=== PATIENT | male | born 1970 | race Caucasian/White ===

== ENCOUNTER → 2020-05-28 | Outpatient (RCR) | payer OTHER, MEDICARE | LOC: PT 08:44 | PROVIDERS: ATTEND Psychiatry & Neurology Neurology | DX: M62.81 Muscle weakness (generalized) (principal); M54.9 Dorsalgia, unspecified; R26.0 Ataxic gait ==

== ENCOUNTER 2020-06-24 08:00 | Outpatient (RCR) | payer OTHER, MEDICARE | END 2020-06-27 | LOC: PT 08:00 | PROVIDERS: ATTEND Psychiatry & Neurology Neurology | DX: G35 Multiple sclerosis (principal); M54.5 Low back pain; G83.10 Monoplegia of lower limb affecting unspecified side; R29.898 Other symptoms and signs involving the musculoskeletal system; M62.81 Muscle weakness (generalized); R26.0 Ataxic gait | CPT/HCPCS: 97139 ==